=== PATIENT | female | born 1930 | race Caucasian/White ===

== ENCOUNTER → 2016-05-27 | Outpatient (CLI) | payer OTHER ==
[~2016-05-27] MED LIST: CELE1CAP30 PO; DPKSR/500 PO; GABA-113 PO; LANS30CA63 PO; LEVO112T2 PO; LISI-461 PO; PRM/3 PO; UNPSR400 PO
--- NOTE | 2016-05-27 15:19 | MAMMOGRAPHY REPORT ---
BILATERAL DIGITAL SCREENING MAMMOGRAM WITH CAD: 05/27/2016 CLINICAL HISTORY: Routine screening. Patient has no complaints. TECHNIQUE: Current study was also evaluated with a Computer Aided Detection (CAD) system. COMPARISON: Comparison is made to exams dated: 05/21/2014 mammogram, 05/17/2013 mammogram, 05/16/2012 spark[facility] mogram, 05/07/2010 mammogram, and 05/25/2015 mammogram - [facility]. BREAST COMPOSITION: There are scattered areas of fibroglandular density in both breasts. FINDINGS: No suspicious masses, calcifications, or areas of architectural distortion are noted in e ither breast. There has been no significant interval change compared to prior exams. Bilateral jordan gn-appearing calcifications are not significantly changed. The exam is limited as the patient had d ifficulties tolerating proper positioning due to severely arthritic shoulders; there is mild motion on the right MLO and right cc views and both MLO views do not include far posterior tissue and the p ectoralis muscles are not well-visualized. IMPRESSION: ACR BI-RADS CATEGORY 2: BENIGN There is no mammographic evidence of malignancy. A 1 year screening mammogram is recommended. The p atient will receive written notification of the results. Approximately 10% of breast cancers are not detected with mammography. A negative mammographic repor t should not delay biopsy if a clinically suggestive mass is present. Stephanie Acosta M.D. /:05/27/2016 12:39:54 Certified Professional Coder: Margareth CHAIDEZ(Curt)(M), [facility] letter sent: Normal 1/2 BI-RADS Code: ACR BI-RADS Category 2: Benign
== END | disposition home or self-care (01) ==
LOC: C.MAMM 09:53
PROVIDERS: ATTEND Internal Medicine Pulmonary Disease
DX: Z12.31 Encounter for screening mammogram for malignant neoplasm of breast (principal)

== ENCOUNTER → 2016-08-10 | Outpatient (CLI) | payer OTHER ==
[~2016-08-10] MED LIST changes: +THEO400T9 PO; -UNPSR400 PO
[2016-08-10 10:50] LABS: THEOPHYLLINE 7 mcg/ml (10-20)
[2016-08-10 11:05] LABS: ALT/SGPT 14 U/L (12-78); AST/SGOT 14 U/L (15-37); BLOOD UREA NITROGEN 32 mg/dl (7-18); BUN/CREATININE RATIO 28.8 (10-20); CARBON DIOXIDE 31 mmol/L (21-32); CHLORIDE 110 mmol/L (98-107); GLUCOSE 75 mg/dl (70-99); POTASSIUM 4.6 mmol/L (3.5-5.1); SODIUM 148 mmol/L (136-145)
[2016-08-10 11:15] LABS: ALKALINE PHOSPHATASE 55 U/L (45-117); FERRITIN 35.7 ng/ml (8.0-388.0); THYROID STIMULATING HORMONE 0.835 uIu/ml (0.300-4.500)
== END | disposition home or self-care (01) ==
LOC: C.LABFOXMH 09:19
PROVIDERS: ATTEND Internal Medicine Pulmonary Disease
DX: Z51.81 Encounter for therapeutic drug level monitoring (principal); E08.9 Diabetes mellitus due to underlying condition without complications; G25.81 Restless legs syndrome

== ENCOUNTER → 2016-08-11 | Outpatient (CLI) | payer OTHER ==
[2016-08-11 09:14] LABS: HEMATOCRIT 45.4 % (37-47); MEAN CORPUSCULAR HEMOGLOBIN 34.2 pg (25-34); MEAN CORPUSCULAR HGB CONC 33.5 g/dl (32-36); MEAN PLATELET VOLUME 11.2 fL (7.4-10.4); PLATELET COUNT 176 K/uL (130-400); RED BLOOD COUNT 4.45 M/uL (4.2-5.4); WHITE BLOOD COUNT 5.59 K/uL (4.8-10.8)
== END | disposition home or self-care (01) ==
LOC: C.LABFOXMH 08:10
PROVIDERS: ATTEND Internal Medicine
DX: Z51.81 Encounter for therapeutic drug level monitoring (principal); E08.9 Diabetes mellitus due to underlying condition without complications; G25.81 Restless legs syndrome

== ENCOUNTER 2016-09-23 12:42 | Emergency (ER) | payer OTHER ==
[~2016-09-23] VITALS: Ht 162.6 cm; Wt 65.0 kg
[~2016-09-23 12:42] MED LIST changes: -LISI-461 PO
[2016-09-23 12:47] VITALS: TEMP 36.5; Ht 162.6 cm; Wt 65.0 kg
[2016-09-23] MEDS ORDERED: LISI-461 PO (13:20)
--- NOTE | 2016-09-23 13:41 | DIAGNOSTIC IMAGING REPORT ---
RIGHT KNEE 3 VIEWS CLINICAL HISTORY: RIGHT, TWISTING INJURY Right trauma. Pain. COMPARISON: None. DISCUSSION: The bones and joint spaces appear intact. There is no evidence of fracture, dislocation or bony disease. There is no evidence for soft tissue swelling. IMPRESSION: Negative study. The above report was generated using voice recognition software. It may contain grammatical, syntax or spelling errors. Electronically signed by: Radhames Martel M.D. 09/23/2016 1:39 PM Dictated Date/Time: 09/23/2016 1:39 PM
--- NOTE | 2016-09-23 14:13 | EMERGENCY ROOM VISIT NOTE ---
ED Visit Note First contact with patient: 13:14 CHIEF COMPLAINT: Right knee injury this afternoon HISTORY OF PRESENT ILLNESS: Patient is an 86-year-old white female who presents emergency department for evaluation of her right knee. She has a history of osteoarthritis, right knee instability and lower extremity peripheral neuropathy. She recently completed a course of physical therapy for this. She states that today she was attempting to get into the passenger side of her vehicle. She put her left leg in, and while attempting to sit, the right knee buckled on her. It caused her to slump into the car slightly. She had to call staff from her assisted living facility to help her out of the vehicle. The patient is normally ambulatory with a wheeled walker. She denies any pain, but states that she was encouraged to come be evaluated by staff members to evaluate for a possible "tear" in the right knee. Again, she denies any pain. They did apply ice to it. She has subsequently been able to walk and bear weight on the leg and has had no problems. The instability is something that is chronic for her, she cannot relate any specific triggers.. REVIEW OF SYSTEMS: Review of systems as per HPI. All other systems reviewed were negative. At least 6 systems reviewed. PMH: Electronic medical records are reviewed and summarized as above/below. See Problem List. SOCIAL HISTORY: Patient lives at home with her at [facility]. PHYSICAL EXAM: Vital Signs: Reviewed Nurse's notes. MENTAL STATUS: Patient is a pleasant, well-appearing 86-year-old white female who is awake and alert and in no acute distress. KNEE: Examination of the right knee does not demonstrate any obvious deformity. There is no swelling or knee joint effusion palpable. No peripatellar tenderness, no medial or lateral joint line discomfort. She can extend fully, flex greater than 120, no gross ligamentous instability is appreciated. The right lower extremity is neurovascularly intact. Hip is nontender. DTRs are equal and symmetrical bilaterally. EMERGENCY DEPARTMENT COURSE: X-ray of the right knee does not demonstrate any acute bony abnormality. The patient was reassured. Her knee appears to have given out on her due to her chronic underlying issues, she does not appear to have suffered any type of meniscal or ligamentous instability, there is no evidence for knee fracture. She is encouraged to follow-up with orthopedics or her PCP for further care and management if necessary. She is discharged home in good condition. Medication reconciliation: I attest that I have personally reviewed the patient' s current medication list. Blood pressure screening: Patient was found to have a slightly elevated blood pressure due to circumstances. I do not believe that the patient requires hypertension monitoring. Problem List Medical Problems: (1) Complex partial seizures Status: Chronic (2) GERD (gastroesophageal reflux disease) Status: Chronic (3) Hypothyroidism Status: Chronic (4) Idiopathic neuropathy Status: Chronic Surgical Problems: (1) History of hysterectomy Status: Resolved Current/Historical Medications Scheduled Celecoxib (Celecoxib), 200 MG PO BID Divalproex Sodium (Depakote Etended-Release), 500 MG PO BID Gabapentin (Neurontin), 300 MG PO QID Lansoprazole (Prevacid), 30 MG PO DAILY Levothyroxine Sodium (Synthroid), 112 MCG PO DAILY Lisinopril (Zestril), 10 MG PO DAILY Theophylline Cont Rel (Uniphyl Controlled Rel), 400 MG PO DAILY Allergies Coded Allergies: Molds and Smuts (Unverified Allergy, Unknown, trouble breathing, 10/28/15) Vital Signs Date Time Temp Pulse Resp B/P (MAP) Pulse Ox O2 Delivery O2 Flow Rate FiO2 09/23/16 14:19 76 18 143/74 97 09/23/16 12:47 36.5 78 18 141/74 96 Room Air Departure Information Impression Primary Impression: Recurrent right knee instability Referrals Bhavesh Salas M.D. (PCP) Patient Instructions My [facility] Additional Instructions Continue current medications. Follow-up with your primary care provider or with orthopedic surgery for further care and management if your symptoms are not improving.
[2016-09-23 14:19] VITALS: BP 143/74; PULSE 76; O2SAT 97
== END 2016-09-23 14:21 | disposition home or self-care (01) ==
LOC: C.EDB 12:43 → C.EDD 14:21
DX: M23.51 Chronic instability of knee, right knee (principal); E03.9 Hypothyroidism, unspecified; K21.9 Gastro-esophageal reflux disease without esophagitis; G40.209 Localization-related (focal) (partial) symptomatic epilepsy and epileptic syndromes with complex partial seizures, not intractable, without status epilepticus; G60.9 Hereditary and idiopathic neuropathy, unspecified; Z90.710 Acquired absence of both cervix and uterus; Z91.09 Other allergy status, other than to drugs and biological substances

== ENCOUNTER → 2017-04-18 | Outpatient (CLI) | payer OTHER ==
[~2017-04-18] MED LIST changes: +LISI-461 PO; -PRM/3 PO; -THEO400T9 PO; +UNPSR400 PO
[2017-04-18 12:40] LABS: BLOOD UREA NITROGEN 22 mg/dl (7-18); CALCIUM 9.4 mg/dl (8.5-10.1); CARBON DIOXIDE 31 mmol/L (21-32); CREATININE 1.03 mg/dl (0.60-1.20); GLUCOSE 75 mg/dl (70-99); POTASSIUM 4.4 mmol/L (3.5-5.1); SODIUM 142 mmol/L (136-145)
== END | disposition home or self-care (01) ==
LOC: C.LAB1850 10:34
PROVIDERS: ATTEND Physician Assistant Medical
DX: G25.81 Restless legs syndrome (principal)

== ENCOUNTER → 2017-05-15 | Outpatient (CLI) | payer OTHER ==
--- NOTE | 2017-05-15 12:16 | DIAGNOSTIC IMAGING REPORT ---
PELVIS 1 OR 2 VIEW ROUTINE CLINICAL HISTORY: 86 years-old Female presenting with M70.60 Trochanteric bursitis. TECHNIQUE: Single frontal view of the pelvis was obtained. COMPARISON: 02/16/2012. FINDINGS: Osteopenia suspected. Sacroiliac joints, pubic symphysis, and hip joints congruent. Bony pelvis intact. Femoral necks intact. No advanced degenerative change of the pelvis. However, advanced degenerative changes in the lower lumbar spine noted. IMPRESSION: No acute osseous injury of the pelvis. Electronically signed by: Primitivo Fernandez M.D. 05/15/2017 12:15 PM Dictated Date/Time: 05/15/2017 12:14 PM
--- NOTE | 2017-05-15 12:20 | DIAGNOSTIC IMAGING REPORT ---
RIGHT HIP 2 VIEWS HISTORY: Right hip pain. M70.60 Trochanteric bursitis right COMPARISON: None. FINDINGS: There is no fracture or dislocation. Soft tissues are unremarkable. The bones are osteopenic. The visualized pelvic bones appear intact. Mild cartilage space narrowing within the right hip consistent with degenerative change. IMPRESSION: Mild osteoarthritis within the right hip. No fracture or dislocation. Electronically signed by: Hieu Guillory M.D. 05/15/2017 12:19 PM Dictated Date/Time: 05/15/2017 12:17 PM
== END | disposition home or self-care (01) ==
LOC: C.RAD1850 11:33
PROVIDERS: ATTEND Internal Medicine Pulmonary Disease
DX: M70.61 Trochanteric bursitis, right hip (principal)

== ENCOUNTER → 2017-05-26 | Outpatient (CLI) | payer OTHER ==
[2017-05-26 13:44] LABS: BASO % 0.1 %; BASO ABS # 0.01 K/uL (0-0.2); HEMATOCRIT 43.1 % (37-47); HEMOGLOBIN 14.9 g/dL (12.0-16.0); LYMPH % 9.7 %; LYMPH ABS # 0.87 K/uL (1.2-3.4); MEAN CELL VOLUME 98.9 fL (80-100); MEAN CORPUSCULAR HEMOGLOBIN 34.2 pg (25-34); MEAN CORPUSCULAR HGB CONC 34.6 g/dl (32-36); MEAN PLATELET VOLUME 11.1 fL (7.4-10.4); MONO % 5.6 %; NEUT % 83.5 %; NEUT ABS # 7.45 K/uL (1.4-6.5); PLATELET COUNT 176 K/uL (130-400); RED CELL DISTRIBUTION WIDTH CV 13.3 % (11.5-14.5); RED CELL DISTRIBUTION WIDTH SD 47.8 fL (36.4-46.3); WHITE BLOOD COUNT 8.93 K/uL (4.8-10.8)
[2017-05-26 14:08] LABS: ALBUMIN 3.4 gm/dl (3.4-5.0); ALT/SGPT 16 U/L (12-78); AST/SGOT 14 U/L (15-37); BLOOD UREA NITROGEN 34 mg/dl (7-18); CALCIUM 9.7 mg/dl (8.5-10.1); CARBON DIOXIDE 26 mmol/L (21-32); CREATININE 1.23 mg/dl (0.60-1.20); GLUCOSE 109 mg/dl (70-99); SODIUM 140 mmol/L (136-145)
[2017-05-26 14:09] LABS: ALKALINE PHOSPHATASE 67 U/L (45-117); TOTAL PROTEIN 6.8 gm/dl (6.4-8.2)
== END | disposition home or self-care (01) ==
LOC: C.LABBC 11:20
PROVIDERS: ATTEND Psychiatry & Neurology Neurology
DX: G40.209 Localization-related (focal) (partial) symptomatic epilepsy and epileptic syndromes with complex partial seizures, not intractable, without status epilepticus (principal); Z51.81 Encounter for therapeutic drug level monitoring; Z79.899 Other long term (current) drug therapy

== ENCOUNTER → 2017-06-02 | Outpatient (CLI) | payer OTHER ==
--- NOTE | 2017-06-05 08:09 | MAMMOGRAPHY REPORT ---
BILATERAL DIGITAL SCREENING MAMMOGRAM TOMOSYNTHESIS WITH CAD: 06/02/2017 CLINICAL HISTORY: Routine screening. Patient has no complaints. TECHNIQUE: Breast tomosynthesis in addition to standard 2D mammography was performed. Current study was also evaluated with a Computer Aided Detection (CAD) system. COMPARISON: Comparison is made to exams dated: 05/27/2016 mammogram, 05/25/2015 mammogram, 05/21/2014 ma mmogram, 05/17/2013 mammogram, 05/16/2012 mammogram, and 05/13/2011 mammogram - [facility] er. BREAST COMPOSITION: There are scattered areas of fibroglandular density in both breasts. FINDINGS: No suspicious masses, calcifications, or areas of architectural distortion are noted in ei ther breast. There has been no significant interval change compared to prior exams. Scattered bilater al benign-appearing calcifications are not significantly changed. IMPRESSION: ACR BI-RADS CATEGORY 2: BENIGN There is no mammographic evidence of malignancy. A 1 year screening mammogram is recommended. The pa tient will receive written notification of the results. Approximately 10% of breast cancers are not detected with mammography. A negative mammographic report should not delay biopsy if a clinically suggestive mass is present. Stephanie Acosta M.D. /:06/02/2017 15:04:33 Gunner'S Mate M: Apurva ENGEL)(Zenia)(BD), [facility] letter sent: Normal 1/2 BI-RADS Code: ACR BI-RADS Category 2: Benign
== END | disposition home or self-care (01) ==
LOC: C.MAMM 14:35
PROVIDERS: ATTEND Internal Medicine Pulmonary Disease
DX: Z12.31 Encounter for screening mammogram for malignant neoplasm of breast (principal)

== ENCOUNTER → 2017-09-19 | Outpatient (CLI) | payer OTHER ==
--- NOTE | 2017-09-19 14:38 | DIAGNOSTIC IMAGING REPORT ---
L TIBIA/FIBULA 2 VIEWS ROUTINE CLINICAL HISTORY: 87 years-old Female presenting with M79.606 Leg [id number]. TECHNIQUE: Frontal and lateral views of the left lower leg were obtained. COMPARISON: 04/09/2015. FINDINGS: Osteopenia suspected. Knee joint and ankle mortise congruent. No acute fracture or malalignment. Degenerative changes of the ankle mortise suspected. Mild diffuse subcutaneous edema as on prior exam. IMPRESSION: 1. No acute osseous injury. 2. Suspected osteopenia. 3. Chronic diffuse subcutaneous edema. Electronically signed by: Primitivo Fernandez M.D. 09/19/2017 2:37 PM Dictated Date/Time: 09/19/2017 2:35 PM
== END | disposition home or self-care (01) ==
LOC: C.RAD1850 14:16
PROVIDERS: ATTEND Nurse Practitioner
DX: M79.606 Pain in leg, unspecified (principal); R60.0 Localized edema

== ENCOUNTER 2017-10-02 09:09 | Emergency (ER) | payer OTHER ==
[2017-10-02 09:11] VITALS: TEMP 36.4; Ht 162.6 cm
[2017-10-02] MEDS ORDERED: DOXY100C2 PO (09:58)
--- NOTE | 2017-10-02 10:03 | EMERGENCY ROOM VISIT NOTE ---
ED Visit Note First contact with patient: 09:18 I have seen and examined this patient with Jaqueline Martel and generally agree with the treatment plan as discussed.
--- NOTE | 2017-10-02 10:22 | DIAGNOSTIC IMAGING REPORT ---
R ANKLE MIN 3 VIEWS ROUTINE CLINICAL HISTORY: Right ankle pain status post trauma COMPARISON: None. DISCUSSION: The bones are mildly osteopenic. No acute fractures are visualized. The ankle mortise appears intact. There is a tiny plantar calcaneal spur. IMPRESSION: No fractures or dislocations identified. Electronically signed by: Anmol Diez M.D. 10/02/2017 10:20 AM Dictated Date/Time: 10/02/2017 10:20 AM
--- NOTE | 2017-10-02 10:32 | EMERGENCY ROOM VISIT NOTE ---
ED Visit Note First contact with patient: 09:18 CHIEF COMPLAINT: Right ankle injury HISTORY OF PRESENT ILLNESS: This 87-year-old female who resides at [facility] presents to ER with chief complaint of right ankle injury. The patient states she was getting in the car and rolled her right ankle. The patient has minimal pain but she has neuropathy. She is able to bear weight. The patient states that she was on her way to see her family doctor for her cellulitis. The patient has seen Dr. Ortiz in the past for other orthopedic needs. REVIEW OF SYSTEMS: 6 system review was performed and was negative unless stated otherwise in history of present illness. PMH: No prior significant ankle injury. Cellulitis, asthma, hysterectomy SOCIAL HISTORY: Patient lives at [facility] patient denies any tobacco or alcohol use. PHYSICAL EXAM: Vital Signs: Were reviewed reviewed Nurse's notes. GENERAL: 87- year-old white female appears in no acute distress. MENTAL STATUS: Alert, oriented, and cooperative. RIGHT ANKLE the ankle is swollen and tender over the lateral aspect but the skin is intact and there is no ligamentous instability. There is no deformity. The foot and toes are warm and well- perfused. Sensation to pain and light touch is intact. EMERGENCY DEPARTMENT COURSE: The patient was evaluated by myself and independently by Dr. Hamilton. X-ray of the right ankle was ordered interpreted by the radiologist and myself. DIAGNOSTICS:R ANKLE MIN 3 VIEWS ROUTINE CLINICAL HISTORY: Right ankle pain status post trauma COMPARISON: None. DISCUSSION: The bones are mildly osteopenic. No acute fractures are visualized. The ankle mortise appears intact. There is a tiny plantar calcaneal spur. IMPRESSION: No fractures or dislocations identified. Electronically signed by: Anmol Diez M.D. The patient was informed of the findings. The patient was independently evaluated by Dr. Hamilton who agree with treatment plan. Patient was placed in a gel splint discharged home in stable condition. DIAGNOSIS: Right ankle sprain DISCHARGE INSTRUCTIONS: Ice and elevation over the next 24 hours. Wear a gel splint for 2 weeks while ambulating. If symptoms persist or worsen, follow-up with Dr. Ortiz Problem List Medical Problems: (1) Complex partial seizures Status: Chronic (2) GERD (gastroesophageal reflux disease) Status: Chronic (3) Hypothyroidism Status: Chronic (4) Idiopathic neuropathy Status: Chronic Surgical Problems: (1) History of hysterectomy Status: Resolved Current/Historical Medications Scheduled Celecoxib (Celecoxib), 200 MG PO BID Divalproex Sodium (Depakote Etended-Release), 500 MG PO BID Doxycycline Hyclate (Vibramycin), 100 MG PO BID Gabapentin (Neurontin), 300 MG PO QID Lansoprazole (Prevacid), 30 MG PO DAILY Levothyroxine Sodium (Synthroid), 112 MCG PO DAILY Lisinopril (Zestril), 10 MG PO DAILY Theophylline Cont Rel (Uniphyl Controlled Rel), 400 MG PO DAILY Allergies Coded Allergies: Molds and Smuts (Unverified Allergy, Unknown, trouble breathing, 10/02/17) Vital Signs Date Time Temp Pulse Resp B/P (MAP) Pulse Ox O2 Delivery O2 Flow Rate FiO2 10/02/17 09:11 36.4 81 16 147/76 94 Room Air Departure Information Referrals Bhavesh Salas M.D. (PCP) Patient Instructions My [facility]
[2017-10-02 11:40] VITALS: BP 120/71; PULSE 70; O2SAT 94
== END 2017-10-02 11:49 | disposition home or self-care (01) ==
LOC: C.EDB 09:09 → C.EDA 11:49
DX: S93.401A Sprain of unspecified ligament of right ankle, initial encounter (principal); X58.XXXA Exposure to other specified factors, initial encounter; Y93.89 Activity, other specified; G60.9 Hereditary and idiopathic neuropathy, unspecified; G40.209 Localization-related (focal) (partial) symptomatic epilepsy and epileptic syndromes with complex partial seizures, not intractable, without status epilepticus; K21.9 Gastro-esophageal reflux disease without esophagitis; E03.9 Hypothyroidism, unspecified

== ENCOUNTER → 2017-10-06 | Outpatient (CLI) | payer OTHER ==
[~2017-10-06] MED LIST changes: +DOXY100C2 PO
== END | disposition home or self-care (01) ==
LOC: C.LAB1850 11:11
PROVIDERS: ATTEND Physician Assistant Medical
DX: G25.81 Restless legs syndrome (principal)